=== PATIENT | male | born 1955 | race Caucasian/White ===

== ENCOUNTER 2017-04-27 08:46 | Day surgery (SDC) | payer OTHER ==
[2017-04-23 10:25] VITALS: BMI 26.4
[2017-04-27] MEDS ORDERED: LIDOCAINE HCL/PF 2% SDV 5ML VIAL ONE (09:34)
[2017-04-27] MEDS ORDERED: PROPOFOL 20 ML ONE ×2 (09:34)
[2017-04-27 10:44] VITALS: BP 112/72; PULSE 55; TEMP 98
== END 2017-04-27 10:48 | disposition home or self-care (01) ==
LOC: FASU-ENDO 08:46
PROVIDERS: ATTEND Internal Medicine Gastroenterology
PROC: 0DJD8ZZ Inspection of Lower Intestinal Tract, Via Natural or Artificial Opening Endoscopic (ICD-10-PCS; principal; 2017-04-27 09:53)
DX: Z12.11 Encounter for screening for malignant neoplasm of colon (principal)

== ENCOUNTER 2022-06-09 06:33 | Day surgery (SDC) | payer OTHER ==
[2022-06-05 11:14] VITALS: BMI 25.7
[2022-06-09 08:48] VITALS: PULSE 60
[2022-06-09 11:06] VITALS: BP 124/72; RESP 18; TEMP 97.8
== END 2022-06-09 11:06 | disposition home or self-care (01) ==
LOC: FASU-ENDO 06:33
PROVIDERS: ATTEND Internal Medicine Gastroenterology
PROC: 0DBL8ZX Excision of Transverse Colon, Via Natural or Artificial Opening Endoscopic, Diagnostic (ICD-10-PCS; 2022-06-09)
PROC: 3E0H8KZ Introduction of Other Diagnostic Substance into Lower GI, Via Natural or Artificial Opening Endoscopic (ICD-10-PCS; 2022-06-09)
PROC: 0DBK8ZX Excision of Ascending Colon, Via Natural or Artificial Opening Endoscopic, Diagnostic (ICD-10-PCS; principal; 2022-06-09 09:39)
DX: Z12.11 Encounter for screening for malignant neoplasm of colon (principal); Z86.010 Personal history of colon polyps
CPT/HCPCS: 82962; 88305-TC

== ENCOUNTER 2023-05-11 07:35 | Day surgery (SDC) | payer OTHER ==
[2023-05-07 12:57] VITALS: BMI 25.1
[2023-05-11] MEDS ORDERED: LIDOCAINE HCL/PF 2% SDV 5ML VIAL ONE (08:03)
[2023-05-11] MEDS ORDERED: PROPOFOL 160 ML ONE (08:04)
[2023-05-11 09:07] VITALS: TEMP 97.4
[2023-05-11 09:22] VITALS: RESP 18
[2023-05-11 09:35] VITALS: BP 116/72; PULSE 66
== END 2023-05-11 09:34 | disposition home or self-care (01) ==
LOC: FASU-ENDO 07:35
PROVIDERS: ATTEND Internal Medicine Gastroenterology
PROC: 0DBN8ZX Excision of Sigmoid Colon, Via Natural or Artificial Opening Endoscopic, Diagnostic (ICD-10-PCS; principal; 2023-05-11 08:20)
DX: Z12.11 Encounter for screening for malignant neoplasm of colon (principal); D12.5 Benign neoplasm of sigmoid colon; Z86.010 Personal history of colon polyps
CPT/HCPCS: 82962; 88305-TC

== ENCOUNTER 2024-02-08 07:13 | Day surgery (SDC) | payer OTHER ==
[2024-02-02 16:04] VITALS: BMI 24.4
[2024-02-08 07:42] VITALS: RESP 16
[2024-02-08 09:04] VITALS: TEMP 97.3
[2024-02-08 09:15] VITALS: BP 136/74; PULSE 62
== END 2024-02-08 09:26 | disposition home or self-care (01) ==
LOC: FASU-ENDO 07:13
PROVIDERS: ATTEND Internal Medicine Gastroenterology
PROC: 0DBL8ZX Excision of Transverse Colon, Via Natural or Artificial Opening Endoscopic, Diagnostic (ICD-10-PCS; principal; 2024-02-08 08:13)
DX: Z12.11 Encounter for screening for malignant neoplasm of colon (principal); D12.3 Benign neoplasm of transverse colon; Z86.010 Personal history of colon polyps
CPT/HCPCS: 82962; 88305-TC